=== PATIENT | male | born 2000 | race Caucasian/White ===

== ENCOUNTER 2018-03-29 19:34 | Emergency (ER) | payer BC ==
[2018-03-29] MEDS ORDERED: Sodium Chloride 0.9% 1000 ML 1,000 ML IV STA (20:19)
[2018-03-29] MEDS ORDERED: Zofran 4 MG/2 ML VIAL IV ONE (20:19)
[2018-03-29] MEDS ORDERED: D50W 50 ml Abboject IV ONE ×2 (20:19→20:26)
--- NOTE | 2018-03-29 20:19 | ERPHSYRPT ---
- History of Present Illness Time Seen by Provider: 03/29/18 20:10 Source: patient Exam Limitations: no limitations Physician History: 17 y/o insulin dependent diabetic white male presents with first headache while driving approx 3pm. pt stopped, wasnt thinking straight. took his blood glucose and it was 60. pt made his way home. tried to eat and drink but vomited. no other flu like sx. no head injury by worst headache he has ever had. blood glucose on arrival 84. has mild photophobia. Timing/Duration: today Severity: moderate Associated Symptoms: nausea, vomiting, headaches Allergies/Adverse Reactions: No Known Drug Allergies Allergy (Verified 03/29/18 20:05) Home Medications: Insulin Glargine,Hum.rec.anlog [Lantus] 100 unit SQ HS 03/29/18 [History] Insulin Lispro [Humalog] 100 unit SQ ACHS PRN 03/29/18 [History] Hx Tetanus, Diphtheria Vaccination/Date Given: Yes Hx Influenza Vaccination/Date Given: Yes Hx Pneumococcal Vaccination/Date Given: No - Review of Systems Constitutional: No Symptoms Eyes: Photophobia Ears, Nose, & Throat: No Symptoms Respiratory: No Symptoms Cardiac: No Symptoms Abdominal/Gastrointestinal: Abdominal Pain (mild cramping), Nausea, Vomiting Genitourinary Symptoms: No Symptoms Musculoskeletal: No Symptoms Skin: No Symptoms Neurological: No Symptoms Psychological: No Symptoms Endocrine: No Symptoms Hematologic/Lymphatic: No Symptoms Immunological/Allergic: No Symptoms All Other Systems: Reviewed and Negative - Past Medical History Pertinent Past Medical History: Yes Neurological History: No Pertinent History ENT History: No Pertinent History Cardiac History: No Pertinent History Respiratory History: No Pertinent History Endocrine Medical History: Diabetes Type I Musculoskeletal History: No Pertinent History GI Medical History: No Pertinent History History: No Pertinent History Psycho-Social History: No Pertinent History Male Reproductive Disorders: No Pertinent History - Past Surgical History Past Surgical History: No Neuro Surgical History: No Pertinent History Cardiac: No Pertinent History Respiratory: No Pertinent History Gastrointestinal: No Pertinent History Genitourinary: No Pertinent History Musculoskeletal: No Pertinent History - Social History Smoking Status: Never smoker Exposure to second hand smoke: No Drug Use: none - Nursing Vital Signs Nursing Vital Signs: Initial Vital Signs Pulse Rate 97 H 03/29/18 20:08 Respiratory Rate 18 03/29/18 20:08 Blood Pressure 144/94 03/29/18 20:08 O2 Sat by Pulse Oximetry 99 03/29/18 20:08 Pain Scale Pain Intensity 1 - Physical Exam General Appearance: mild distress, alert, anxiety Eye Exam: PERRL/EOMI, photophobia Ears, Nose, Throat Exam: normal ENT inspection, moist mucous membranes Neck Exam: normal inspection, non-tender, supple, full range of motion Respiratory Exam: normal breath sounds, lungs clear, airway intact, No chest tenderness, No respiratory distress, No accessory muscle use, No rhonchi, No wheezing, No stridor Cardiovascular Exam: regular rate/rhythm, normal heart sounds, normal peripheral pulses Gastrointestinal/Abdomen Exam: soft, normal bowel sounds, No tenderness, No guarding, No rebound Rectal Exam: not done Back Exam: normal inspection, normal range of motion, No CVA tenderness, No vertebral tenderness Extremity Exam: normal inspection, normal range of motion, pelvis stable Neurologic Exam: alert, oriented x 3, cooperative, security systems administrator II-XII nml as tested Skin Exam: normal color, warm, dry Lymphatic Exam: No adenopathy SpO2 Interpretation: normal O2 Delivery: Room Air - Course Nursing assessment & vital signs reviewed: Yes Ordered Tests: Active Orders 24 hr Category Date Time Status Accucheck STAT Care 03/29/18 20:19 Active Clean Catch Urine Specimen STAT Care 03/29/18 20:19 Active HEAD WITHOUT CONTRAST [CT] Stat Exams 03/29/18 21:47 Taken BMP Stat Lab 03/29/18 20:10 Completed CBC W DIFF Stat Lab 03/29/18 20:10 Completed CULTURE,URINE Stat Lab 03/29/18 20:14 Received UA W/RFX UR CULTURE Stat Lab 03/29/18 20:14 Completed Medication Summary Discontinued Medications Generic Name Dose Route Start Last Admin Trade Name Freq PRN Reason Stop Dose Admin Dextrose 25 ml 03/29/18 20:19 03/29/18 20:50 D50w 50 Ml Abboject IV 03/29/18 20:20 25 ml STAT ONE Administration Dextrose Confirm 03/29/18 20:26 D50w 50 Ml Abboject Administered 03/29/18 20:27 Dose 50 ml IV .STK-MED ONE Hydromorphone HCl Confirm 03/29/18 20:40 Hydromorphone 1 Mg/Ml Ampule Administered 03/29/18 20:41 Dose 1 mg .ROUTE .STK-MED ONE Hydromorphone HCl 0.5 mg 03/29/18 20:43 03/29/18 20:47 Hydromorphone 1 Mg/Ml Ampule IV 03/29/18 20:44 0.5 mg STAT ONE Administration Sodium Chloride 1,000 mls @ 999 mls/hr 03/29/18 20:19 03/29/18 22:09 Sodium Chloride 0.9% 1000 Ml IV 03/29/18 21:19 Infused .Q1H1M STA Infusion Sodium Chloride Confirm 03/29/18 20:25 Sodium Chloride 0.9% 1000 Ml Administered 03/29/18 20:26 Dose 1,000 mls @ ud .ROUTE .STK-MED ONE Ondansetron HCl 4 mg 03/29/18 20:19 03/29/18 20:43 Zofran 4 Mg/2 Ml Vial IV 03/29/18 20:20 4 mg STAT ONE Administration Ondansetron HCl Confirm 03/29/18 20:25 Zofran 4 Mg/2 Ml Vial Administered 03/29/18 20:26 Dose 4 mg .ROUTE .STK-MED ONE Lab/Rad Data: Laboratory Result Diagrams 03/29/18 20:10 03/29/18 20:10 Laboratory Results 03/29/18 03/29/18 03/29/18 Range/Units 21:10 20:14 20:10 WBC (4.0-10.5) K/mm3 RBC (4.1-5.6) M/mm3 Hgb (12.5-18.0) gm/dl Hct (42-50) % MCV (78-100) fl MCH (26-32) pg MCHC (32-36) g/dl RDW (11.5-14.0) % Plt Count (150-450) K/mm3 MPV (6-9.5) fl Gran % (36.0-66.0) % Eos # (Auto) (0-0.5) Absolute Lymphs (auto) (1.0-4.6) Absolute Monos (auto) (0.0-1.3) Lymphocytes % (24.0-44.0) % Monocytes % (0.0-12.0) % Eosinophils % (0.00-5.0) % Basophils % (0.0-0.4) % Absolute Granulocytes (1.4-6.9) Basophils # (0-0.4) Sodium 142 (137-145) mmol/L Potassium 3.9 (3.5-5.1) mmol/L Chloride 103 (98-107) mmol/L Carbon Dioxide 28 (22-30) mmol/L Anion Gap 15.5 H (5-15) MEQ/L BUN 15 (9-20) mg/dL Creatinine 0.80 (0.66-1.25) mg/dL Estimated GFR > 60.0 ML/MIN Glucose 96 (74-106) mg/dL Calcium 10.3 H (8.4-10.2) mg/dL Urine Color YELLOW (YELLOW) Urine Appearance SLIGHTLY CLOUDY (CLEAR) Urine pH 6.0 (5-6) Ur Specific [place] 1.024 (1.005-1.025) Urine Protein 30 (Negative) Urine Ketones SMALL (NEGATIVE) Urine Blood NEGATIVE (0-5) Russ/ul Urine Nitrite NEGATIVE (NEGATIVE) Urine Bilirubin NEGATIVE (NEGATIVE) Urine Urobilinogen 2 (0-1) mg/dL Ur Leukocyte Esterase NEGATIVE (NEGATIVE) Urine WBC (Auto) 6-10 (0-5) /HPF Urine RBC (Auto) 3-5 (0-2) /HPF U Hyaline Cast (Auto) 0-2 (0-2) /LPF U Epithel Cells (Auto) RARE (FEW) /HPF Urine Bacteria (Auto) RARE (NEGATIVE) /HPF Urine Mucus (Auto) MODERATE (NEGATIVE) /HPF Urine Culture Reflexed YES (NO) Urine Glucose 50 (NEGATIVE) mg/dL Influenza Type A Ag NEGATIVE (NEGATIVE) Influenza Type B Ag NEGATIVE (NEGATIVE) RSV (PCR) NEGATIVE (Negative) Group A Strep Antibody NEGATIVE (NEGATIVE) 03/29/18 Range/Units 20:10 WBC 9.5 (4.0-10.5) K/mm3 RBC 5.56 (4.1-5.6) M/mm3 Hgb 16.3 (12.5-18.0) gm/dl Hct 47.6 (42-50) % MCV 85.6 (78-100) fl MCH 29.3 (26-32) pg MCHC 34.2 (32-36) g/dl RDW 12.4 (11.5-14.0) % Plt Count 230 (150-450) K/mm3 MPV 9.9 H (6-9.5) fl Gran % 83.9 H (36.0-66.0) % Eos # (Auto) 0.01 (0-0.5) Absolute Lymphs (auto) 1.03 (1.0-4.6) Absolute Monos (auto) 0.46 (0.0-1.3) Lymphocytes % 10.9 L (24.0-44.0) % Monocytes % 4.9 (0.0-12.0) % Eosinophils % 0.1 (0.00-5.0) % Basophils % 0.2 (0.0-0.4) % Absolute Granulocytes 7.93 H (1.4-6.9) Basophils # 0.02 (0-0.4) Sodium (137-145) mmol/L Potassium (3.5-5.1) mmol/L Chloride (98-107) mmol/L Carbon Dioxide (22-30) mmol/L Anion Gap (5-15) MEQ/L BUN (9-20) mg/dL Creatinine (0.66-1.25) mg/dL Estimated GFR ML/MIN Glucose (74-106) mg/dL Calcium (8.4-10.2) mg/dL Urine Color (YELLOW) Urine Appearance (CLEAR) Urine pH (5-6) Ur Specific [place] (1.005-1.025) Urine Protein (Negative) Urine Ketones (NEGATIVE) Urine Blood (0-5) Russ/ul Urine Nitrite (NEGATIVE) Urine Bilirubin (NEGATIVE) Urine Urobilinogen (0-1) mg/dL Ur Leukocyte Esterase (NEGATIVE) Urine WBC (Auto) (0-5) /HPF Urine RBC (Auto) (0-2) /HPF U Hyaline Cast (Auto) (0-2) /LPF U Epithel Cells (Auto) (FEW) /HPF Urine Bacteria (Auto) (NEGATIVE) /HPF Urine Mucus (Auto) (NEGATIVE) /HPF Urine Culture Reflexed (NO) Urine Glucose (NEGATIVE) mg/dL Influenza Type A Ag (NEGATIVE) Influenza Type B Ag (NEGATIVE) RSV (PCR) (Negative) Group A Strep Antibody (NEGATIVE) - Progress Progress: improved, pain not gone completely, re-examined Progress Note: 03/29/18 22:35 ct head-no acute intracranial pathology Counseled pt/family regarding: lab results, diagnosis, need for follow-up, rad results - Departure Time of Disposition: 22:36 Departure Disposition: Home Clinical Impression: Headache Condition: Stable Critical Care Time: No Referrals: SANTANA ALVAREZ MD [Primary Care Provider] - Additional Instructions: drink plenty of fluid. follow up with primary doctor for further management
[2018-03-29] MEDS ORDERED: Zofran 4 MG/2 ML VIAL ONE (20:25)
[2018-03-29] MEDS ORDERED: Sodium Chloride 0.9% 1000 ML 1,000 ML ONE (20:25)
[2018-03-29 20:40] LABS: Appearance SLIGHTLY CLOUDY (CLEAR); Bacteria RARE /HPF (NEGATIVE); Bilirubin NEGATIVE (NEGATIVE); Blood NEGATIVE Ery/ul (0-5); Epithelial Cells RARE /HPF (FEW); Glucose 50 mg/dL (NEGATIVE); Hyaline Casts 0-2 /LPF (0-2); Ketones SMALL (NEGATIVE); Leukocyte Esterase NEGATIVE (NEGATIVE); Mucus MODERATE /HPF (NEGATIVE); Nitrite NEGATIVE (NEGATIVE); Protein,Urine Dip 30 (Negative); Specific Gravity 1.024 (1.005-1.025); Urobilinogen 2 mg/dL (0-1)
[2018-03-29] MEDS ORDERED: Hydromorphone 1 mg/ml Ampule ONE (20:40)
[2018-03-29] MEDS ORDERED: Hydromorphone 1 mg/ml Ampule IV ONE (20:43)
[2018-03-29 21:05] LABS: BASOPHIL % 0.2 % (0.0-0.4); Basophil (Absolute #) 0.02 (0-0.4); Eosinophil % 0.1 % (0.00-5.0); Eosinophil (Absolute #) 0.01 (0-0.5); Granulocyte Absolute (ANC) 7.93 (1.4-6.9); Granulocytes % 83.9 % (36.0-66.0); Hematocrit 47.6 % (42-50); Hemoglobin 16.3 gm/dl (12.5-18.0); Lymphocyte (Absolute #) 1.03 (1.0-4.6); Lymphocytes % 10.9 % (24.0-44.0); Mean Cell Volume 85.6 fl (78-100); Mean Corpuscular Hemoglobin 29.3 pg (26-32); Mean Corpuscular Hgb Concent. 34.2 g/dl (32-36); Mean Platelet Volume 9.9 fl (6-9.5); Monocyte (Absolute #) 0.46 (0.0-1.3); Monocytes % 4.9 % (0.0-12.0); Platelet Count 230 K/mm3 (150-450); Red Blood Count 5.56 M/mm3 (4.1-5.6); Red Cell Distribution Width 12.4 % (11.5-14.0); White Blood Count 9.5 K/mm3 (4.0-10.5)
[2018-03-29 21:17] LABS: ANION GAP 15.5 MEQ/L (5-15); BLOOD UREA NITROGEN 15 mg/dL (9-20); CHLORIDE 103 mmol/L (98-107); Calcium 10.3 mg/dL (8.4-10.2); Carbon Dioxide 28 mmol/L (22-30); Glucose 96 mg/dL (74-106); Potassium 3.9 mmol/L (3.5-5.1); SODIUM 142 mmol/L (137-145)
[2018-03-29 21:48] LABS: Group A Strep NEGATIVE (NEGATIVE); INFLUENZA A NEGATIVE (NEGATIVE); INFLUENZA B NEGATIVE (NEGATIVE); RESPIRATORY SYNCTIAL VIRUS NEGATIVE (Negative)
[2018-03-29 21:59] VITALS: PULSE 104
[2018-03-29] MEDS ORDERED: NORCO 5/325 MG PO ONE (22:45)
[2018-03-29] MEDS ORDERED: NORCO 5/325 MG ONE (22:51)
[2018-03-29 22:56] VITALS: BP 125/74; O2SAT 98
--- NOTE | 2018-03-30 08:54 | XRAY ---
Indication: Migraine headache. Multiple contiguous axial images obtained through the head without contrast. Comparison: None Normal appearing brain parenchyma, ventricles, and bony calvarium. Visualized paranasal sinuses and mastoid air cells are clear. Impression: Normal CT head without contrast exam. Comment: Preliminary interpretation was made by [facility]. No discrepancy. CT DI 67.00
== END 2018-03-29 23:00 | disposition home or self-care (01) ==
LOC: ED 19:34
DX: R51 Headache (principal); E10.8 Type 1 diabetes mellitus with unspecified complications; Z79.4 Long term (current) use of insulin
CPT/HCPCS: 36000; 36415; 70450; 80048; 81001; 82962; 85025; 87086; 87631; 87651; 96360; 96374; 96375; 99284; J1170; J2405; A9270-GY